=== PATIENT | male | born 1970 | race American Indian/Alaskan Native ===

== ENCOUNTER 2020-04-16 03:00 | Observation (INO) | payer OTHER ==
[~2020-04-16 03:00] MED LIST: levoFLOXacin 750 MG TAB PO SCH
[2020-04-16] MEDS ORDERED: NALOXONE 0.4 MG/1 ML INJ IV ONE (03:10)
[2020-04-16] MEDS ORDERED: NALOXONE 2 MG/2 ML INJ ONE (03:10)
[2020-04-16] MEDS ORDERED: SODIUM CHLORIDE 0.9% 1000 ML 1,000 ML IV ONE (03:10)
--- NOTE | 2020-04-16 03:17 | Emergency Department Report ---
History of Present Illness - General Chief Complaint: Dyspnea/Respdistress Stated Complaint: POSS OD/ANJUM Time Seen by Provider: 04/16/20 03:10 Source: patient, EMS Mode of arrival: Stretcher Limitations: No Limitations - History of Present Illness Initial Comments: Chief complaint: Stomach pain chest pain shortness of breath HPI: This is a 50-year-old male with history of polysubstance abuse who presents with abdominal pain chest pain shortness of breath after using recreational drugs. Today just prior to EMS arrival he smoked marijuana and snorted unknown substance from a friend. He assumed that the substance was cocaine. EMS discovered severe hypoxia 77% on room air and decreased respiratory effort. Pinpoint pupils and drowsiness also detected by metal ceiling hanger. Patient has nonspecific abdominal pain. Without oxygen supplementation, current room air oxygenation 67% which is severely hypoxic. Patient able to give history although still drowsy. MD Complaint: accidental overdose -: Sudden, This morning Context: Accidental Overdose: wanted to get high Associated Symptoms: shortness of breath, abdominal pain Treatments Prior to Arrival: oxygen - Related Data Allergies Allergy/AdvReac Type Severity Reaction Status Date / Time No Known Allergies Allergy Verified 04/16/20 03:09 ED Review of Systems ROS: Stated complaint: POSS OD/ANJUM Other details as noted in HPI Comment: All other systems reviewed and negative Constitutional: denies: fever, malaise Respiratory: shortness of breath. denies: cough Cardiovascular: chest pain Gastrointestinal: abdominal pain Psychiatric: denies: anxiety, depression, auditory hallucinations, visual hallucinations, homicidal thoughts, suicidal thoughts ED Past Medical Hx - Past Medical History Previous Medical History?: No - Surgical History Past Surgical History?: No - Social History Smoking Status: Current Every Day Smoker Substance Use Type: Alcohol, Cocaine, Marijuana ED Physical Exam - General Limitations: No Limitations General appearance: alert, in no apparent distress - Head Head exam: Present: atraumatic, normocephalic - Eye Eye exam: Present: normal appearance - ENT ENT exam: Present: mucous membranes moist - Neck Neck exam: Present: normal inspection, full ROM - Respiratory Respiratory exam: Present: normal lung sounds bilaterally. Absent: respiratory distress, wheezes, rales, rhonchi - Cardiovascular Cardiovascular Exam: Present: normal rhythm, tachycardia, normal heart sounds. Absent: systolic murmur, diastolic murmur, rubs, gallop - GI/Abdominal GI/Abdominal exam: Present: soft, normal bowel sounds. Absent: distended, tenderness, guarding, rebound - Rectal Rectal exam: Present: deferred - Extremities Exam Extremities exam: Present: normal inspection - Neurological Exam Neurological exam: Present: alert, oriented X3 - Psychiatric Psychiatric exam: Present: normal affect, normal mood - Skin Skin exam: Present: warm, dry, intact, normal color. Absent: rash ED Course Vital Signs 04/16/20 03:31 Pulse Rate 137 H Respiratory 22 Rate Blood Pressure 132/95 [Left] O2 Sat by Pulse 92 Oximetry ED Medical Decision Making - Lab Data Result diagrams: 04/16/20 03:16 04/16/20 03:16 - EKG Data EKG shows normal: sinus rhythm, intervals, QRS complexes, ST-T waves Rate: tachycardia - EKG Data 04/16/20 04:15 EKG obtained 0406 EKG interpreted by md Sinus tachycardia rate 120 bpm left axis deviation prolonged QTC no ST elevation normal nonischemic T wave pattern - Radiology Data Radiology results: report reviewed CHEST 1 VIEW 04/16/2020 2:37 AM INDICATION / CLINICAL INFORMATION: Hypoxia. COMPARISON: None available. FINDINGS: SUPPORT DEVICES: None. HEART / MEDIASTINUM: No significant abnormality. LUNGS / PLEURA: There are patchy bilateral pulmonary opacities. No pneumothorax. ADDITIONAL FINDINGS: No significant additional findings. IMPRESSION: 1. Patchy bilateral pulmonary opacities which may reflect developing infectious process. - Medical Decision Making Upon arrival patient was drowsy with severe hypoxia. I asked nursing staff member to administer 2 mg of Narcan. Shortly after receiving naloxone, patient was alert agitated screaming for water. He then admitted he suspected heroin was mixed then with the powder that he snorted. He tolerated water intake. Once patient became more more alert, he explained that he took pills and snorted lines from unknown person. He suspects that ingested ecstasy, cocaine and heroin. Prior to using drugs, he was in his normal state of health. He denied fever cough shortness of breath. He currently does not have any chest or abdominal pain. He does have some shortness of breath. After ingesting the drugs, he awakened suddenly. He felt as though something was not right. He had passed out. He is currently staying at a hotel. He asked dental front office assistant to call 911. Upon lab review troponin equivocal 0.05, EKG does not reveal any acute ischemic changes. I do not suspect acute occlusive myocardial infarction. Patient did have severe tachycardia upon arrival. I suspect troponin leak. Creatinine 1.7. No leukocytosis normal WBC. Patient is admitted to the hospital service for aspiration pneumonitis, acute respiratory failure hypoxia, polysubstance abuse and unintentional overdose. Critical Care Time: Yes Critical care time in (mins) excluding proc time.: 40 Critical care attestation.: If time is entered above; I have spent that time in minutes in the direct care of this critically ill patient, excluding procedure time. 40 minutes of critical care time excluding procedures were used in the care of the patient. I came immediately to the bedside upon patient's arrival. I obtained history from EMS at the bedside. I discussed treatment plan with the nursing team members. I reviewed electronic record. Patient required multiple interventions and reassessments. I was concerned for imminent airway/respi ratory compromise. Patient had severe hypoxia 67% on room air upon arrival. I was also concerned for aspiration pneumonitis as well as pneumothorax. ED Disposition Clinical Impression: Acute respiratory failure, Polysubstance abuse, Drug overdose, Aspiration pneumonitis Disposition: OP ADMIT IP TO THIS HOSP Is pt being admited?: Yes Does the pt Need Aspirin: No Condition: Stable
[2020-04-16 03:34] LABS: Mean Corpuscular HGB Conc 31 % (32-34); Mean Corpuscular Volume 80 fl (84-94); Platelet Count 234 K/mm3 (140-440); Red Blood Count 6.37 M/mm3 (3.65-5.03); Red Cell Distribution Width 14.4 % (13.2-15.2)
--- NOTE | 2020-04-16 03:45 | XRay Report ---
CHEST 1 VIEW 04/16/2020 2:37 AM INDICATION / CLINICAL INFORMATION: Hypoxia. COMPARISON: None available. FINDINGS: SUPPORT DEVICES: None. HEART / MEDIASTINUM: No significant abnormality. LUNGS / PLEURA: There are patchy bilateral pulmonary opacities. No pneumothorax. ADDITIONAL FINDINGS: No significant additional findings. IMPRESSION: 1. Patchy bilateral pulmonary opacities which may reflect developing infectious process. Signer Name: Austyn Stroud MD Signed: 04/16/2020 3:40 AM Workstation Name: [email or web address]
[2020-04-16 03:50] LABS: Hematocrit 50.8 % (35.5-45.6); Hemoglobin 15.7 gm/dl (11.8-15.2)
[2020-04-16 03:51] LABS: Albumin 4.5 g/dL (3.9-5); Calcium 9.2 mg/dL (8.4-10.2)
[2020-04-16] MEDS ORDERED: PIPERACIL/TAZOBACTA 4.5/NS 100 4.5 GM/100 ML VIAL IV ONE ×2 (04:10→15:15)
[2020-04-16] MEDS ORDERED: MAGNESIUM HYDROXIDE (MOM) ORAL LIQD UDC PO PRN (04:41)
[2020-04-16] MEDS ORDERED: ACETAMINOPHEN 325 MG TAB PO PRN ×2 (04:41→17:21)
[2020-04-16] MEDS ORDERED: SODIUM CHLORIDE 0.9% 1000 ML 1,000 ML IV SCH ×2 (04:45)
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
[2020-04-16 06:03] LABS: Chol/HDL Ratio 2.03 %
[2020-04-16 06:20] LABS: Eosinophils % (Manual) 0 % (0.0-4.3); Total Cells Counted 100
[2020-04-16 06:21] LABS: Anisocytosis Few; Hypochromasia 1+; Platelet Estimate Consistent w Auto; Target Cells Rare
[2020-04-16 08:54] LABS: Benzodiazepines Screen,Urine Negative; Methadone Screen,Urine Negative; Opiate Screen,Urine Negative
[2020-04-16 10:42] LABS: Amphetamine Screen,Urine PRESUMPTIVE POSITIVE
[2020-04-16 10:43] LABS: Cannabinoid Screen,Urine PRESUMPTIVE POSITIVE; Cocaine Screen,Urine PRESUMPTIVE POSITIVE
[2020-04-16] MEDS ORDERED: SODIUM CHLORIDE 0.9% 1000 ML 1,000 ML ONE (12:12)
[2020-04-16] MEDS: PIPERACIL/TAZOBACTA 4.5/NS 100 4.5 GM/100 ML VIAL IV SCH ×2 (15:16→22:30)
--- NOTE | 2020-04-16 17:20 | Event Note ---
Date: 04/16/20 patient evaluated and labs reviewed Crack cocaine overdose accidentally along with alcohol with 24ounce beer x3 bottles Creatinine of 1.7 Diagnoses STAN Crack cocaine accidental overdose Patient is not homicidal or suicidal Dehydration Patient counseled about crack cocaine dependency and patient states that he will never do it
[2020-04-16] MEDS ORDERED: ONDANSETRON 4 MG/2 ML INJ IV PRN (17:21)
[2020-04-16] MEDS ORDERED: LORazepam 2 MG/ML VIAL ONE ×2 (17:46→20:17)
[2020-04-16] MEDS: LORazepam 2 MG/ML VIAL IV PRN ×3 (17:55→22:42)
[2020-04-16] MEDS ORDERED: D5W/0.9% NACL 1,000 ML IV SCH (18:00)
[2020-04-16] MEDS ORDERED: ENOXAPARIN 40 MG/0.4 ML INJ SUB-Q SCH (22:00)
[2020-04-16] MEDS: FAMOTIDINE 20 MG/2 ML INJ IV SCH (22:29)
[2020-04-16] MEDS: HEPARIN 5,000 UNIT/1 ML VIAL SUB-Q SCH (22:30)
[2020-04-17] MEDS: PIPERACIL/TAZOBACTA 4.5/NS 100 4.5 GM/100 ML VIAL IV SCH (05:58)
[2020-04-17 06:01] LABS: Basophils % (Auto) 0.3 % (0.0-1.8); Eosinophils % (Auto) 0.1 % (0.0-4.3); Hematocrit 40.6 % (35.5-45.6); Hemoglobin 12.7 gm/dl (11.8-15.2); Lymphocytes # (Auto) 0.7 K/mm3 (1.2-5.4); Lymphocytes % (Auto) 6.2 % (13.4-35.0); Mean Corpuscular HGB Conc 31 % (32-34); Mean Corpuscular Volume 78 fl (84-94); Monocytes # (Auto) 0.9 K/mm3 (0.0-0.8); Monocytes % (Auto) 7.6 % (0.0-7.3); Platelet Count 161 K/mm3 (140-440); Red Blood Count 5.17 M/mm3 (3.65-5.03); Red Cell Distribution Width 13.5 % (13.2-15.2)
[2020-04-17 06:05] LABS: INR 1.22 (0.87-1.13)
[2020-04-17 06:08] LABS: BUN/Creatinine Ratio 11; Blood Urea Nitrogen 12 mg/dL (9-20); Calcium 8.4 mg/dL (8.4-10.2); Hemolysis Index 3
--- NOTE | 2020-04-17 08:53 | Discharge Summary ---
Providers - Providers Date of Admission: 04/16/20 04:17 Date of discharge: 04/17/20 Attending physician: ANCELMO NEGRON 04/16/20 17:23 Consult to Mental Health [CONS] Routine Reason For Exam: Crack cocaine abuse Primary care physician: MANUFACTURING BUSINESS ANALYST Hospitalization Condition: Stable Hospital course: 50-year-old -[place] male with known history of polysubstance abuse brought into the emergency room today by EMS with shortness of breath after using some recreational drugs. Patient admits that he snorted some unknown substance from a friend earlier today prior to arrival of EMS. He was found to be severely hypoxic with oxygen saturation of 77% on room air and decreased respiratory efforts. He was found to be drowsy and had pinpoint pupils. He had some Narcan with significant improvement. Upon arrival in the emergency room he was placed on BiPAP. Work-up in the emergency room today reveals - Patchy bilateral pulmonary opacities which may reflect developing infectious process. He has been placed on empiric IV antibiotics. Patient was seen yesterday afternoon and none of this morning. Patient is alert oriented. Patient attributes his unresponsiveness to excessive amount. Crack cocaine combined with excessive pills combined with alcohol and small dose of heroin. Patient says artery disease stability and at home he wants to stop with further. No suicidal or homicidal ideation. (1) Acute respiratory failure Status: Acute Plan to address problem: Improved O2 sats are normal on room air (2) Aspiration pneumonitis Status: Acute Plan to address problem: No aspiration pneumonia We will discharge on oral Levaquin (3) Drug overdose Status: Acute Plan to address problem: Patient counseled on quitting illicit drug abuse. Recovered completely from the drug overdose and is alert and oriented. Able to talk appropriately and intelligently. Patient counseled again about stopping crack cocaine and ecstasy and alcohol. Patient states that he will go for outpatient rehab. Patient will be discharged on Ativan 0.5 twice daily as needed for any withdrawal symptoms. Disposition: DC-01 TO HOME OR SELFCARE - Discharge Diagnoses (1) Respiratory failure with hypoxia Status: Acute (2) Drug overdose Status: Acute Qualifiers: Encounter type: subsequent encounter Injury intent: accidental or unintentional Qualified Code(s): T50.901D - Poisoning by unspecified drugs, medicaments and biological substances, accidental (unintentional), subsequent encounter Comment: Patient is stable and alert and oriented (3) Pneumonia Status: Acute Comment: No aspiration Pneumonia is doubtful Empiric antibiotics (4) Alcoholic ketoacidosis Status: Acute Comment: Improved with IV fluids and CIWA protocol (5) Discharge planning issues Status: Acute Comment: No suicidal or homicidal ideation Patient is labs reviewed come down to normal creatinine is 1.0 (6) STAN (acute kidney injury) Status: Acute Comment: Resolved Core Measure Documentation - Palliative Care Palliative Care/ Comfort Measures: Not Applicable - Core Measures Any of the following diagnoses?: none Exam - Constitutional Vitals: Temp Pulse Resp BP Pulse Ox 100.8 F H 111 H 24 104/64 91 04/17/20 04:56 04/17/20 04:56 04/17/20 04:56 04/17/20 04:56 04/17/20 04:56 General appearance: Present: no acute distress, well-nourished - EENT Eyes: Present: PERRL ENT: hearing intact, clear oral mucosa - Neck Neck: Present: supple, normal ROM - Respiratory Respiratory effort: normal Respiratory: bilateral: CTA - Cardiovascular Heart rate: 78 Rhythm: regular Heart Sounds: Present: S1 & S2. Absent: rub, click - Extremities Extremities: no ischemia, pulses intact, pulses symmetrical, No edema Peripheral Pulses: within normal limits - Abdominal General gastrointestinal: Present: soft, non-tender, non-distended, normal bowel sounds Male genitourinary: Present: normal - Integumentary Integumentary: Present: clear, warm, dry - Musculoskeletal Musculoskeletal: gait normal, strength equal bilaterally - Psychiatric Psychiatric: appropriate mood/affect, intact judgment & insight - Neurologic Neurologic: CNII-XII intact, moves all extremities Plan Activity: no restrictions Diet: regular Follow up with: PRIMARY CARE, [Primary Care Provider] - 7 Days
[2020-04-17] MEDS: LORazepam 2 MG/ML VIAL IV PRN (10:00)
[2020-04-17] MEDS: FAMOTIDINE 20 MG/2 ML INJ IV SCH (10:54)
[2020-04-17] MEDS: HEPARIN 5,000 UNIT/1 ML VIAL SUB-Q SCH (10:58)
--- NOTE | 2020-04-17 11:59 | Consultation ---
History of Present Illness - Reason for Consult Consult date: 04/17/20 Reason for consult: accidental overdose, drug use - History of Present Psychiatric Illness The patient's medical record was reviewed and the patient's progress was discussed with the nursing staff. During my interview with the patient today, he is lying in bed asleep. He easily arouses but drifts back to sleep. The patient is oriented x 3. He says he was brought to the ER for "too much drugs." The patient says he was doing "alcohol, marijuana and cocaine." He says "the lady at the hotel front desk agent at the hotel called 911." He says "I guess I passed out." The patient denies thoughts of self harm o r homicidal thoughts. He also denies any thoughts of or dying. The patient states, "I wasn't trying to kill myself." He then says, "not at all." He says he went to rehab "once before." When counseling the patient about his drug use, he states "I told God after I came in here almost . I don't want to see another beer, cigarette or drug in my life." He denies any withdrawal symptoms at pre sent. The patient denies any past suicide attempts or seeing a psychiatrist. He also denies being on any psych medications. He denies hallucinations of any kind, stating, "no, I don't have hallucinations." The patient describes his mood as "okay, but tired." He says, "but I gotta go to work when I leave here." He then says, "tomorrow anyway." PAST PSYCHIATRIC HISTORY: Diagnoses: Denies Suicide attempts or Self-harm behavior: Denies Prior psychiatric hospitalizations: Denies Substance Abuse history: Alcohol, marijuana, cocaine. UDS + for meth as well Previous psychiatric medications tried: Denies Outpatient treatment: Denies PAST MEDICAL HISTORY: None reported Family Psychiatric History: None reported or documented SOCIAL HISTORY Marital Status: Single Living Arrangements: in hotel room Employment Status: Employed Access to guns/weapons: Denies Education: high school grad History of Abuse: none reported Legal History: Denies REVIEW OF SYSTEMS Constitutional: Negative for weight loss ENT: Negative for stridor Respiratory: Negative for cough or hemoptysis All other systems reviewed and are negative MENTAL STATUS EXAMINATION General Appearance: Dressed appropriately. Sleeping Behavior: Calm and cooperative, drowsy Mood: "okay, but tired" Affect and affective range: Congruent with stated mood Thought Process: goal directed Speech: Normal tone and pace Suicidal Ideation: Denies Homicidal Ideation: Denies Hallucinations: Denies Delusions: None elicited Insight and Judgment: Limited Memory/Cognition: Limited Orientation: Alert, oriented x 3 Assessment Substance Use Disorder PLAN No meds prescribed at this time. Sitter: Defer to primary Medical: Per primary Disposition: Do not recommend acute inpatient psychiatric treatment. The patient may discharge once medically clear. He understands that if thoughts of self harm or fear of endangerment arise he is to seek immediate assistance including but not limited to the crisis hotline, 911/ER. The liquid waste treatment plant operator to give the patient referrals for outpatient psychiatry, cognitive behavioral therapy and drug and alcohol rehab. The patient is to abstain from all illicit drug use and alcohol. He is to follow up with outpatient psych and primary in 7 to 14 days upon discharge Will Continue to follow. Thank you for this consult Medications and Allergies Allergies Allergy/AdvReac Type Severity Reaction Status Date / Time No Known Allergies Allergy Verified 04/16/20 03:09 Home Medications Medication Instructions Recorded Confirmed Last Taken Type LORazepam [Ativan] 0.5 mg PO Q6H PRN #16 tablet 04/17/20 Unknown Rx Active Meds: Active Medications Acetaminophen (Tylenol) 650 mg PO Q4H PRN PRN Reason: Pain MILD(1-3)/Fever >100.5/ACEVEDO Last Admin: 04/17/20 06:11 Dose: 650 mg Documented by: Enoxaparin Sodium (Enoxaparin) 40 mg SUB-Q QDAY@2200 RUBÉN; Protocol Last Admin: 04/16/20 22:29 Dose: 40 mg Documented by: Famotidine (Pepcid) 20 mg IV BID [facility] Stop: 04/17/20 14:00 Last Admin: 04/17/20 10:54 Dose: 20 mg Documented by: Famotidine (Pepcid) 20 mg PO BID [facility] Heparin Sodium (Porcine) (Heparin) 5,000 unit SUB-Q Q12HR [facility] Last Admin: 04/17/20 10:58 Dose: 5,000 unit Documented by: Piperacillin Sod/Tazobactam Sod (Zosyn/Ns 4.5gm/100ml) 4.5 gm in 100 mls @ 200 mls/hr IV Q8HR [facility]; Protocol Stop: 04/20/20 23:59 Last Infusion: 04/17/20 08:23 Dose: Infused Documented by: Dextrose/Sodium Chloride (D5ns) 1,000 mls @ 100 mls/hr IV DIRECT RUBÉN Levofloxacin (Levaquin) 750 mg PO DAILY [facility] Stop: 04/22/20 10:59 Lorazepam (Ativan) 2 mg IV Q1H PRN PRN Reason: CIWA-Ar 8-15 Last Admin: 04/17/20 10:00 Dose: 2 mg Documented by: Magnesium Hydroxide (Milk Of Magnesia) 30 ml PO Q4H PRN PRN Reason: Constipation Ondansetron HCl (Zofran) 4 mg IV Q8H PRN PRN Reason: Nausea And Vomiting Sodium Chloride (Sodium Chloride Flush Syringe 10 Ml) 10 ml IV BID [facility] Last Admin: 04/17/20 10:56 Dose: 10 ml Documented by: Sodium Chloride (Sodium Chloride Flush Syringe 10 Ml) 10 ml IV PRN PRN PRN Reason: LINE FLUSH Sodium Chloride (Sodium Chloride Flush Syringe 10 Ml) 10 ml IV BID [facility] Last Admin: 04/17/20 10:58 Dose: 10 ml Documented by: Mental Status Exam - Vital signs Last Vital Signs Temp 100.8 F H 04/17/20 04:56 Pulse 111 H 04/17/20 04:56 Resp 24 04/17/20 04:56 BP 104/64 04/17/20 04:56 Pulse Ox 91 04/17/20 04:56 Results Result Diagrams: 04/17/20 05:06 04/17/20 05:06 Abnormal lab results 04/17/20 04/17/20 Range/Units 05:06 05:06 WBC 11.7 H (4.5-11.0) K/mm3 RBC 5.17 H (3.65-5.03) M/mm3 MCV 78 L (84-94) fl MCH 25 L (28-32) pg MCHC 31 L (32-34) % Lymph % (Auto) 6.2 L (13.4-35.0) % [place] % (Auto) 7.6 H (0.0-7.3) % Lymph # (Auto) 0.7 L (1.2-5.4) K/mm3 [place] # (Auto) 0.9 H (0.0-0.8) K/mm3 Seg Neutrophils % 85.8 H (40.0-70.0) % Seg Neutrophils # 10.0 H (1.8-7.7) K/mm3 PT 15.6 H (12.2-14.9) Sec. INR 1.22 H (0.87-1.13) All other labs normal.
[2020-04-17 18:27] VITALS: BP 122/72
[2020-04-17] MEDS ORDERED: FAMOTIDINE 20 MG TAB PO SCH (22:00)
[2020-04-18] MEDS ORDERED: levoFLOXacin 750 MG TAB PO SCH (10:00)
== END 2020-04-17 20:00 | disposition home or self-care (01) ==
LOC: ED 03:00 → IMCU 04:17 → 3A 17:37
PROVIDERS: ADMIT Internal Medicine Geriatric Medicine; ATTEND Internal Medicine
DX: J96.00 Acute respiratory failure, unspecified whether with hypoxia or hypercapnia (principal); J69.0 Pneumonitis due to inhalation of food and vomit; T50.901D Poisoning by unspecified drugs, medicaments and biological substances, accidental (unintentional), subsequent encounter; E87.2 Acidosis; N17.9 Acute kidney failure, unspecified; F17.200 Nicotine dependence, unspecified, uncomplicated; F12.10 Cannabis abuse, uncomplicated; F14.10 Cocaine abuse, uncomplicated; X58.XXXD Exposure to other specified factors, subsequent encounter; Y93.89 Activity, other specified; Y92.89 Other specified places as the place of occurrence of the external cause
CPT/HCPCS: 36415; 71045; 80048; 80053; 80061; 80307; 83690; 84484; 85025; 85610; 87040; 93005; 96361; 96365; 96366; 96367; 96372; 96375; 96376; 99291; G0378; J1644; J1650; J1956; J2060; J2310; J2543; J7030; 80320; 85007; G0480

== ENCOUNTER 2020-04-19 06:54 | Inpatient (IN) | payer OTHER ==
--- NOTE | 2020-04-19 07:26 | Emergency Department Report ---
ED General Adult HPI - General Chief complaint: Chest Pain Stated complaint: CHEST PAIN PUI?: Yes Time Seen by Provider: 04/19/20 07:23 Source: patient, EMS ( EMS documentation not available at time of chart dictation ), RN notes reviewed Mode of arrival: Stretcher Limitations: Physical Limitation - History of Present Illness Initial comments: The patient was evaluated in the emergency department for symptoms described in the history of present illness. He/she was evaluated in the context of the global COVID-19 pandemic, which necessitated consideration that the patient might be at risk for infection with the virus that causes COVID-19. Institutional protocols and algorithms that pertain to the evaluation of patient s at risk for COVID-19 are in a state of rapid change based on information released by regulatory bodies including the CDC and federal and state organizations. These policies and algorithms were followed during the patient's care in the emergency department. Please note that these policies, procedures and recommendations changed on a rapid basis. During the entire history and physical examination, I had on complete personal protective equipment The patient is a 50-year-old gentleman, with a history of polysubstance abuse recreational drug use, recently admitted to this hospital for acute respiratory failure, hypoxia, and presumed aspiration pneumonitis. He was discharged with antibiotics. He is not taking his antibiotics. He presents to the ER today with continued complaints of cough, chest wall pain, shortness of breath, chills, malaise and fatigue. He states his symptoms have been going on for a few days. He contacted emergency medical services, and was reportedly found to be hypoxic, saturating in the low 80s. No complaint of headache, abdominal pain, vomiting. Question diaphoresis. -: Gradual, days(s) Location: chest Consistency: constant Improves with: rest Worsens with: movement - Related Data Previous Rx's Medication Instructions Recorded Last Taken Type LORazepam [Ativan] 0.5 mg PO Q6H PRN #16 tablet 04/17/20 Unknown Rx Allergies Allergy/AdvReac Type Severity Reaction Status Date / Time No Known Allergies Allergy Verified 04/16/20 03:09 ED Review of Systems ROS: Stated complaint: CHEST PAIN Other details as noted in HPI Constitutional: diaphoresis, malaise Eyes: denies: eye discharge ENT: congestion Respiratory: cough, shortness of breath, wheezing Cardiovascular: chest pain Gastrointestinal: denies: vomiting Genitourinary: as per HPI Musculoskeletal: myalgia Skin: denies: lesions Neurological: weakness ED Past Medical Hx - Past Medical History Hx Congestive Heart Failure: No Hx Diabetes: No Hx Asthma: No Hx COPD: No Hx HIV: No - Social History Smoking Status: Current Every Day Smoker - Medications Home Medications: Home Medications Medication Instructions Recorded Confirmed Last Taken Type LORazepam [Ativan] 0.5 mg PO Q6H PRN #16 tablet 04/17/20 Unknown Rx ED Physical Exam - General Limitations: Physical Limitation General appearance: alert, anxious, in distress - Head Head exam: Present: atraumatic, normocephalic - Eye Eye exam: Present: normal appearance, EOMI. Absent: nystagmus - ENT ENT exam: Present: normal exam, normal orophraynx, mucous membranes moist, normal external ear exam - Neck Neck exam: Present: normal inspection, full ROM. Absent: tenderness, meningismus - Respiratory Respiratory exam: Present: respiratory distress, chest wall tenderness, accessory muscle use, decreased breath sounds. Absent: stridor - Cardiovascular Cardiovascular Exam: Present: regular rate, normal rhythm, normal heart sounds. Absent: bradycardia, tachycardia, irregular rhythm, systolic murmur, diastolic murmur, rubs, gallop - GI/Abdominal GI/Abdominal exam: Present: soft. Absent: distended, tenderness, guarding, rebound, rigid, pulsatile mass - Rectal Rectal exam: Present: deferred - Extremities Exam Extremities exam: Present: normal inspection, full ROM, other (2+ pulses noted in the bilateral upper and lower extremities. There is no palpable cord. negative Homans sign. Muscular compartments are soft. The pelvis is stable.). Absent: pedal edema, calf tenderness - Back Exam Back exam: Present: normal inspection, full ROM. Absent: tenderness, CVA tenderness (R), CVA tenderness (L), paraspinal tenderness, vertebral tenderness - Neurological Exam Neurological exam: Present: alert, other (No facial droop. Tongue midline. Extraocular movements intact bilaterally. Facial sensation intact to light touch in V1, V2, V3 distribution bilaterally. 5 and a 5 strength in 4 extremities. Sensation intact to light touch in 4 extremities.). Absent: motor sensory deficit - Psychiatric Psychiatric exam: Present: anxious - Skin Skin exam: Present: warm, dry, intact, normal color. Absent: rash ED Course Vital Signs 04/19/20 08:56 Pulse Rate 90 Respiratory 16 Rate Blood Pressure 97/56 [Left] O2 Sat by Pulse 100 Oximetry ED Medical Decision Making - Lab Data Result diagrams: 04/19/20 07:35 04/19/20 07:35 Vital Signs 04/19/20 08:56 Pulse Rate 90 Respiratory 16 Rate Blood Pressure 97/56 [Left] O2 Sat by Pulse 100 Oximetry Lab Results 04/19/20 04/19/20 04/19/20 Range/Units 07:35 07:35 07:35 WBC 12.1 H (4.5-11.0) K/mm3 RBC 5.05 H (3.65-5.03) M/mm3 Hgb 12.4 (11.8-15.2) gm/dl Hct 38.5 (35.5-45.6) % MCV 76 L (84-94) fl MCH 25 L (28-32) pg MCHC 32 (32-34) % RDW 13.7 (13.2-15.2) % Plt Count 186 (140-440) K/mm3 Lymph % (Auto) 7.7 L (13.4-35.0) % [place] % (Auto) 11.9 H (0.0-7.3) % Eos % (Auto) 0.1 (0.0-4.3) % Baso % (Auto) 0.4 (0.0-1.8) % Lymph # (Auto) 0.9 L (1.2-5.4) K/mm3 [place] # (Auto) 1.4 H (0.0-0.8) K/mm3 Eos # (Auto) 0.0 (0.0-0.4) K/mm3 Baso # (Auto) 0.1 (0.0-0.1) K/mm3 Seg Neutrophils % 79.9 H (40.0-70.0) % Seg Neutrophils # 9.7 H (1.8-7.7) K/mm3 PT 12.6 (12.2-14.9) Sec. INR 0.93 (0.87-1.13) Sodium 136 L (137-145) mmol/L Potassium 3.4 L (3.6-5.0) mmol/L Chloride 99.0 (98-107) mmol/L Carbon Dioxide 27 (22-30) mmol/L Anion Gap 13 mmol/L BUN 6 L (9-20) mg/dL Creatinine 0.9 (0.8-1.3) mg/dL Estimated GFR > 60 ml/min BUN/Creatinine Ratio 7 % Glucose 105 H (75-100) mg/dL Lactic Acid (0.7-2.0) mmol/L Calcium 8.6 (8.4-10.2) mg/dL Magnesium (1.7-2.3) mg/dL Ferritin (30.0-300.0) ng/mL Total Bilirubin 0.80 (0.1-1.2) mg/dL AST 15 (5-40) units/L ALT 15 (7-56) units/L Alkaline Phosphatase 47 (35-129) units/L Lactate Dehydrogenase (91-180) units/L Total Creatine Kinase (55-170) units/L Troponin T < 0.010 (0.00-0.029) ng/mL C-Reactive Protein (0.00-1.30) mg/dL Total Protein 6.1 L (6.3-8.2) g/dL Albumin 2.7 L (3.9-5) g/dL Albumin/Globulin Ratio 0.8 % Salicylates (2.8-20.0) mg/dL Acetaminophen (10.0-30.0) ug/mL Plasma/Serum Alcohol (0-0.07) % 04/19/20 04/19/20 04/19/20 Range/Units 07:35 07:35 07:35 WBC (4.5-11.0) K/mm3 RBC (3.65-5.03) M/mm3 Hgb (11.8-15.2) gm/dl Hct (35.5-45.6) % MCV (84-94) fl MCH (28-32) pg MCHC (32-34) % RDW (13.2-15.2) % Plt Count (140-440) K/mm3 Lymph % (Auto) (13.4-35.0) % [place] % (Auto) (0.0-7.3) % Eos % (Auto) (0.0-4.3) % Baso % (Auto) (0.0-1.8) % Lymph # (Auto) (1.2-5.4) K/mm3 [place] # (Auto) (0.0-0.8) K/mm3 Eos # (Auto) (0.0-0.4) K/mm3 Baso # (Auto) (0.0-0.1) K/mm3 Seg Neutrophils % (40.0-70.0) % Seg Neutrophils # (1.8-7.7) K/mm3 PT (12.2-14.9) Sec. INR (0.87-1.13) Sodium (137-145) mmol/L Potassium (3.6-5.0) mmol/L Chloride (98-107) mmol/L Carbon Dioxide (22-30) mmol/L Anion Gap mmol/L BUN (9-20) mg/dL Creatinine (0.8-1.3) mg/dL Estimated GFR ml/min BUN/Creatinine Ratio % Glucose (75-100) mg/dL Lactic Acid 0.90 (0.7-2.0) mmol/L Calcium (8.4-10.2) mg/dL Magnesium 2.10 (1.7-2.3) mg/dL Ferritin (30.0-300.0) ng/mL Total Bilirubin (0.1-1.2) mg/dL AST (5-40) units/L ALT (7-56) units/L Alkaline Phosphatase (35-129) units/L Lactate Dehydrogenase 237 H (91-180) units/L Total Creatine Kinase 69 (55-170) units/L Troponin T (0.00-0.029) ng/mL C-Reactive Protein 13.40 H (0.00-1.30) mg/dL Total Protein (6.3-8.2) g/dL Albumin (3.9-5) g/dL Albumin/Globulin Ratio % Salicylates 1.0 L (2.8-20.0) mg/dL Acetaminophen (10.0-30.0) ug/mL Plasma/Serum Alcohol (0-0.07) % 04/19/20 04/19/20 04/19/20 Range/Units 07:35 07:35 07:51 WBC (4.5-11.0) K/mm3 RBC (3.65-5.03) M/mm3 Hgb (11.8-15.2) gm/dl Hct (35.5-45.6) % MCV (84-94) fl MCH (28-32) pg MCHC (32-34) % RDW (13.2-15.2) % Plt Count (140-440) K/mm3 Lymph % (Auto) (13.4-35.0) % [place] % (Auto) (0.0-7.3) % Eos % (Auto) (0.0-4.3) % Baso % (Auto) (0.0-1.8) % Lymph # (Auto) (1.2-5.4) K/mm3 [place] # (Auto) (0.0-0.8) K/mm3 Eos # (Auto) (0.0-0.4) K/mm3 Baso # (Auto) (0.0-0.1) K/mm3 Seg Neutrophils % (40.0-70.0) % Seg Neutrophils # (1.8-7.7) K/mm3 PT (12.2-14.9) Sec. INR (0.87-1.13) Sodium (137-145) mmol/L Potassium (3.6-5.0) mmol/L Chloride (98-107) mmol/L Carbon Dioxide (22-30) mmol/L Anion Gap mmol/L BUN (9-20) mg/dL Creatinine (0.8-1.3) mg/dL Estimated GFR ml/min BUN/Creatinine Ratio % Glucose (75-100) mg/dL Lactic Acid (0.7-2.0) mmol/L Calcium (8.4-10.2) mg/dL Magnesium (1.7-2.3) mg/dL Ferritin 342.7 H (30.0-300.0) ng/mL Total Bilirubin (0.1-1.2) mg/dL AST (5-40) units/L ALT (7-56) units/L Alkaline Phosphatase (35-129) units/L Lactate Dehydrogenase (91-180) units/L Total Creatine Kinase (55-170) units/L Troponin T (0.00-0.029) ng/mL C-Reactive Protein (0.00-1.30) mg/dL Total Protein (6.3-8.2) g/dL Albumin (3.9-5) g/dL Albumin/Globulin Ratio % Salicylates (2.8-20.0) mg/dL Acetaminophen 5.0 L (10.0-30.0) ug/mL Plasma/Serum Alcohol < 0.01 (0-0.07) % - EKG Data -: EKG Interpreted by Pa EKG shows normal: sinus rhythm Rate: normal - EKG Data 04/19/20 09:03 Sinus rhythm, 90 bpm, left axis deviation, left anterior fascicular block, high left ventricular voltage, poor R wave progression, the EKG is abnormal, the EKG is not a STEMI, it appears to be unchanged from prior EKG - Radiology Data Radiology results: report reviewed, image reviewed Print Report Referring Physician: JOHN BOLDEN Patient Name: ROHIT GRIMES Date of : 1970 Sex: Male Report Date: 2020-04-16 Report Status: Finalized Findings [facility] [address] [place] [address] XRay Report Signed Patient: ROHIT GRIMES MR#: [id number] 8 : 1970 Acct:[id number] Age/Sex: 50 / M ADM Date: 04/16/20 Loc: ED Attending Dr: Ordering Physician: John Bustillos MD Date of Service: 04/16/20 Procedure(s): XR chest 1V ap Accession Number(s): [id number] cc: John Bustillos MD Fluoro Time In Minutes: CHEST 1 VIEW 04/16/2020 2:37 AM INDICATION / CLINICAL INFORMATION: Hypoxia. COMPARISON: None available. FINDINGS: SUPPORT DEVICES: None. HEART / MEDIASTINUM: No significant abnormality. LUNGS / PLEURA: There are patchy bilateral pulmonary opacities. No pneumothorax. ADDITIONAL FINDINGS: No significant additional findings. IMPRESSION: 1. Patchy bilateral pulmonary opacities which may reflect developing infectious process. Signer Name: Austyn Stroud MD Signed: 04/16/2020 3:40 AM Workstation Name: [id number] Transcribed By: JOSE Dictated By: Austyn Stroud MD Electronically Authenticated By: Austyn Stroud MD Signed Date/Time: 04/16/20339 DD/ 9 TD/TT: - Medical Decision Making Differential diagnosis, including but not limited to: Costochondritis, pneumonia, bacterial versus viral versus COVID Assessment and plan: 50-year-old gentleman with recently diagnosed pneumonia, hypoxic, with reproducible chest wall pain, meets criteria for hospitalization secondary to hypoxia. Laboratory studies reviewed and appreciated, give ceftriaxone, azithromycin, fluids, provide supplemental oxygen, and empiric steroids. COVID testing is ordered. COVID labs ordered. We do not suspect DVT or pulmonary embolism. He is clinically sober at this time. He is not homicidal or suicidal. He does not meet criteria for 1013. An infectious disease consult will be placed as a courtesy to the inpatient team, we will defer to them to follow with him. Patient is amenable to hospitalization at this time. He recently had a slightly elevated troponin during his previous hospitalization, this is likely a type II troponin leak. Hospital physician, Dr. Mayi Nguyen to admit Critical Care Time: Yes Critical care time in (mins) excluding proc time.: 35 Critical care attestation.: If time is entered above; I have spent that time in minutes in the direct care of this critically ill patient, excluding procedure time. ED Disposition Clinical Impression: Respiratory failure with hypoxia, Suspected COVID-19 virus infection, Hypokalemia Disposition: OP ADMIT IP TO THIS HOSP Is pt being admited?: Yes Does the pt Need Aspirin: No Condition: Serious Referrals: PRIMARY CARE, [Primary Care Provider] - 3-5 Days
[2020-04-19] MEDS ORDERED: cefTRIAXone/NS 1 GM/50 ML 1 GM/50 ML BAG IV ONE ×2 (07:49→15:00)
[2020-04-19] MEDS ORDERED: dexAMETHasone 4 MG/ML VIAL IV ONE (07:49)
[2020-04-19] MEDS ORDERED: SODIUM CHLORIDE 0.9% 500 ML 500 ML IV ONE (07:49)
[2020-04-19] MEDS ORDERED: AZITHROMYCIN 500 MG in SODIUM CHLORIDE 0.9% 250ML 250 ML IV SCH (08:00)
[2020-04-19 08:08] LABS: Basophils # (Auto) 0.1 K/mm3 (0.0-0.1); Basophils % (Auto) 0.4 % (0.0-1.8); Eosinophils % (Auto) 0.1 % (0.0-4.3); Hematocrit 38.5 % (35.5-45.6); Hemoglobin 12.4 gm/dl (11.8-15.2); Lymphocytes # (Auto) 0.9 K/mm3 (1.2-5.4); Lymphocytes % (Auto) 7.7 % (13.4-35.0); Mean Corpuscular HGB Conc 32 % (32-34); Mean Corpuscular Volume 76 fl (84-94); Monocytes # (Auto) 1.4 K/mm3 (0.0-0.8); Monocytes % (Auto) 11.9 % (0.0-7.3); Platelet Count 186 K/mm3 (140-440); Red Blood Count 5.05 M/mm3 (3.65-5.03); Red Cell Distribution Width 13.7 % (13.2-15.2)
[2020-04-19 08:21] LABS: INR 0.93 (0.87-1.13)
[2020-04-19 08:25] LABS: Alanine Aminotransferase 15 units/L (7-56); Albumin 2.7 g/dL (3.9-5); BUN/Creatinine Ratio 7; Blood Urea Nitrogen 6 mg/dL (9-20); Calcium 8.6 mg/dL (8.4-10.2); Hemolysis Index 2
[2020-04-19 08:27] LABS: C-Reactive Protein 13.4 mg/dL (0.00-1.30)
[2020-04-19] MEDS ORDERED: KETOROLAC 30 MG/1 ML INJ IV ONE (08:35)
[2020-04-19] MEDS ORDERED: POTASSIUM CHLORIDE ER 20 MEQ TAB PO ONE (08:36)
--- NOTE | 2020-04-19 08:43 | XRay Report ---
CHEST 1 VIEW INDICATION: Dyspnea. COMPARISON: 04/16/2020 FINDINGS: Support devices: None. Heart: Within normal limits. Lungs/Pleura: Previously described bilateral perihilar pulmonary opacities have decreased by 50%. No pleural effusion or pneumothorax. Additional findings: None. IMPRESSION: 50% improvement in the bilateral lung opacities. Signer Name: Donell Walker Jr, MD Signed: 04/19/2020 8:38 AM Workstation Name: [id number]
--- NOTE | 2020-04-19 10:35 | History and Physical Report ---
History of Present Illness Date of examination: 04/19/20 Date of admission: 04/19/20 09:07 Chief complaint: Worsening shortness of breath and cough History of present illness: [id number] patient, with a history of polysubstance abuse recreational drug use, recently discharged from this hospital after getting the treatment for acute respiratory failure, hypoxia, and presumed aspiration pneumonia. Was discharged on antibiotics, noncompliant with medications Presented to the emergency room with worsening cough chest wall pain generalized weakness and intermittent shortness of breath for the last 2 3 days. In ED patient was considered as high risk for COVID, placed in isolation and wilder PCR was sent Past History Past Medical History: other (Recent pneumonia) Past Surgical History: No surgical history Social history: smoking, alcohol abuse, other (Recreational drug use) Family history: no significant family history Medications and Allergies Allergies Allergy/AdvReac Type Severity Reaction Status Date / Time No Known Allergies Allergy Verified 04/16/20 03:09 Home Medications Medication Instructions Recorded Confirmed Last Taken Type LORazepam [Ativan] 0.5 mg PO Q6H PRN #16 tablet 04/17/20 Unknown Rx Review of Systems Constitutional: weakness, no weight loss, no weight gain, no fever, no chills Ears, nose, mouth and throat: no nasal congestion, no nasal discharge Cardiovascular: shortness of breath, no chest pain, no orthopnea Respiratory: cough, shortness of breath, dyspnea on exertion Gastrointestinal: no abdominal pain, no nausea, no vomiting Genitourinary Male: no dysuria, no hematuria Musculoskeletal: no myalgias, no arthritis Integumentary: no rash, no lesions Neurological: no seizures, no syncope Psychiatric: no anxiety, no depression Endocrine: no cold intolerance, no heat intolerance Hematologic/Lymphatic: no easy bruising, no easy bleeding Allergic/Immunologic: no urticaria, no allergic rhinitis Exam - Constitutional Vitals: Temp Pulse Resp BP Pulse Ox 99.2 F 96 H 14 109/69 100 04/19/20 09:00 04/19/20 09:01 04/19/20 09:01 04/19/20 09:30 04/19/20 09:30 General appearance: Present: mild distress, well-nourished - EENT Eyes: Present: PERRL, EOM intact - Neck Neck: Present: supple, normal ROM - Respiratory Respiratory effort: normal Respiratory: bilateral: diminished, rhonchi, negative: rales, wheezing - Cardiovascular Rhythm: regular Heart Sounds: Present: S1 & S2 - Extremities Extremities: no ischemia, No edema - Abdominal General gastrointestinal: Present: soft, non-tender, non-distended, normal bowel sounds - Integumentary Integumentary: Present: clear, warm - Musculoskeletal Musculoskeletal: strength equal bilaterally, generalized weakness - Psychiatric Psychiatric: appropriate mood/affect, cooperative - Neurologic Neurologic: moves all extremities HEART Score - HEART Score Troponin: Troponin T < 0.010 ng/mL (0.00-0.029) 04/19/20 07:35 Results - Labs CBC & Chem 7: 04/19/20 07:35 04/19/20 07:35 Labs: Abnormal lab results 04/19/20 04/19/20 04/19/20 Range/Units 07:35 07:35 07:35 WBC 12.1 H (4.5-11.0) K/mm3 RBC 5.05 H (3.65-5.03) M/mm3 MCV 76 L (84-94) fl MCH 25 L (28-32) pg Lymph % (Auto) 7.7 L (13.4-35.0) % [place] % (Auto) 11.9 H (0.0-7.3) % Lymph # (Auto) 0.9 L (1.2-5.4) K/mm3 [place] # (Auto) 1.4 H (0.0-0.8) K/mm3 Seg Neutrophils % 79.9 H (40.0-70.0) % Seg Neutrophils # 9.7 H (1.8-7.7) K/mm3 Sodium 136 L (137-145) mmol/L Potassium 3.4 L (3.6-5.0) mmol/L BUN 6 L (9-20) mg/dL Glucose 105 H (75-100) mg/dL Ferritin (30.0-300.0) ng/mL Lactate Dehydrogenase 237 H (91-180) units/L C-Reactive Protein 13.40 H (0.00-1.30) mg/dL Total Protein 6.1 L (6.3-8.2) g/dL Albumin 2.7 L (3.9-5) g/dL Salicylates (2.8-20.0) mg/dL Acetaminophen (10.0-30.0) ug/mL 04/19/20 04/19/20 04/19/20 Range/Units 07:35 07:35 07:51 WBC (4.5-11.0) K/mm3 RBC (3.65-5.03) M/mm3 MCV (84-94) fl MCH (28-32) pg Lymph % (Auto) (13.4-35.0) % [place] % (Auto) (0.0-7.3) % Lymph # (Auto) (1.2-5.4) K/mm3 [place] # (Auto) (0.0-0.8) K/mm3 Seg Neutrophils % (40.0-70.0) % Seg Neutrophils # (1.8-7.7) K/mm3 Sodium (137-145) mmol/L Potassium (3.6-5.0) mmol/L BUN (9-20) mg/dL Glucose (75-100) mg/dL Ferritin 342.7 H (30.0-300.0) ng/mL Lactate Dehydrogenase (91-180) units/L C-Reactive Protein (0.00-1.30) mg/dL Total Protein (6.3-8.2) g/dL Albumin (3.9-5) g/dL Salicylates 1.0 L (2.8-20.0) mg/dL Acetaminophen 5.0 L (10.0-30.0) ug/mL Assessment and Plan --PUI/suspicion for COVID-19; COVID-19 test is negative Continue supportive care --Bilateral pneumonia; Patient was admitted and discharged recently Continue antibiotics Rocephin and Zithromax Follow cultures ID ID following --Leukocytosis; Secondary to pneumonia Closely monitor --Hypokalemia; Replenish with KCl, monitor electrolytes --Mild hypo-natremia; Gentle hydration with normal saline --History of polyp substance abuse; Marijuana, cocaine, amphetamine, tobacco, Alcohol Patient counseled to quit recreational drug use Smoking cessation advised, nicotine patch as needed We will closely monitor the patient and adjust management as needed Plan of care reviewed with the patient and his nurse
[2020-04-19] MEDS ORDERED: AZITHROMYCIN 250 MG TAB PO SCH (14:00)
--- NOTE | 2020-04-19 14:04 | Consultation ---
History of Present Illness - Reason for Consult Consult date: 04/19/20 Pneumonia Requesting physician: ANAYELI LOMAX - History of Present Illness The patient is a 50-year-old male with history of polysubstance abuse was recently discharged from the hospital on 04/16/2020 after being admitted with pneumonia, possibility of crack lung due to snorting of cocaine, received IV antibiotics and was discharged on levofloxacin. He returned to the emergency room today with cough, shortness of breath. He did not continue his antibiotics. No fever. Labs showed mild leukocytosis, procalcitonin 1.1, CRP 13.4, ferritin 342.7. COVID-19 PCR is pending. Not hypoxic, oxygen saturation 99% on room air. Review of Systems: reviewed in the chart, unable to obtain directly due to PPE preservation and minimize risk of transmission Medications and Allergies Allergies Allergy/AdvReac Type Severity Reaction Status Date / Time No Known Allergies Allergy Verified 04/16/20 03:09 Home Medications Medication Instructions Recorded Confirmed Last Taken Type LORazepam [Ativan] 0.5 mg PO Q6H PRN #16 tablet 04/17/20 Unknown Rx Active Meds: Active Medications Acetaminophen (Tylenol) 650 mg PO Q4H PRN PRN Reason: Pain, Mild (1-3) Azithromycin (Zithromax) 500 mg PO QDAY RUBÉN Stop: 04/22/20 13:59 Benzonatate (Tessalon Perles) 100 mg PO Q8H PRN PRN Reason: Cough Enoxaparin Sodium (Enoxaparin) 40 mg SUB-Q QDAY@2200 RUBÉN; Protocol Ceftriaxone Sodium (Rocephin/Ns 2 Gm/100 Ml) 2 gm in 100 mls @ 200 mls/hr IV Q24HR RUBÉN; Protocol Stop: 04/22/20 13:59 Physical Examination - Physical Exam Narrative exam: Physical Exam (reviewed in chart due to PPE conservation and minimize risk of transmission) Constitutional: limited due to PPE conservation strategy Head, Ears, Nose: limited due to PPE conservation strategy Eyes: limited due to PPE conservation strategy Neck: limited due to PPE conservation strategy Oral: limited due to PPE conservation strategy Cardiovascular: limited due to PPE conservation strategy Respiratory: limited due to PPE conservation strategy GI: limited due to PPE conservation strategy Musculoskeletal: limited due to PPE conservation strategy Skin: limited due to PPE conservation strategy Hem/Lymphatic: limited due to PPE conservation strategy Psych: limited due to PPE conservation strategy Neurological: limited due to PPE conservation strategy - Constitutional Vitals: Vital Signs Temp Pulse Resp BP Pulse Ox 99.5 F 77 20 105/73 99 04/19/20 11:29 04/19/20 11:29 04/19/20 11:29 04/19/20 11:52 04/19/20 11:29 Temperature -Last 24 Hours Temperature 99.5 F Temperature 99.2 F Results - Labs CBC & Chem 7: 04/19/20 07:35 04/19/20 07:35 Labs: Abnormal lab results 04/19/20 04/19/20 04/19/20 Range/Units 07:35 07:35 07:35 WBC 12.1 H (4.5-11.0) K/mm3 RBC 5.05 H (3.65-5.03) M/mm3 MCV 76 L (84-94) fl MCH 25 L (28-32) pg Lymph % (Auto) 7.7 L (13.4-35.0) % [place] % (Auto) 11.9 H (0.0-7.3) % Lymph # (Auto) 0.9 L (1.2-5.4) K/mm3 [place] # (Auto) 1.4 H (0.0-0.8) K/mm3 Seg Neutrophils % 79.9 H (40.0-70.0) % Seg Neutrophils # 9.7 H (1.8-7.7) K/mm3 Sodium 136 L (137-145) mmol/L Potassium 3.4 L (3.6-5.0) mmol/L BUN 6 L (9-20) mg/dL Glucose 105 H (75-100) mg/dL Ferritin (30.0-300.0) ng/mL Lactate Dehydrogenase 237 H (91-180) units/L C-Reactive Protein 13.40 H (0.00-1.30) mg/dL Total Protein 6.1 L (6.3-8.2) g/dL Albumin 2.7 L (3.9-5) g/dL Salicylates (2.8-20.0) mg/dL Acetaminophen (10.0-30.0) ug/mL 04/19/20 04/19/20 04/19/20 Range/Units 07:35 07:35 07:51 WBC (4.5-11.0) K/mm3 RBC (3.65-5.03) M/mm3 MCV (84-94) fl MCH (28-32) pg Lymph % (Auto) (13.4-35.0) % [place] % (Auto) (0.0-7.3) % Lymph # (Auto) (1.2-5.4) K/mm3 [place] # (Auto) (0.0-0.8) K/mm3 Seg Neutrophils % (40.0-70.0) % Seg Neutrophils # (1.8-7.7) K/mm3 Sodium (137-145) mmol/L Potassium (3.6-5.0) mmol/L BUN (9-20) mg/dL Glucose (75-100) mg/dL Ferritin 342.7 H (30.0-300.0) ng/mL Lactate Dehydrogenase (91-180) units/L C-Reactive Protein (0.00-1.30) mg/dL Total Protein (6.3-8.2) g/dL Albumin (3.9-5) g/dL Salicylates 1.0 L (2.8-20.0) mg/dL Acetaminophen 5.0 L (10.0-30.0) ug/mL - Imaging and Cardiology Chest x-ray: report reviewed, image reviewed (Chest x-ray revealed bilateral patchy infiltrates however there is interval improvement.) Assessment and Plan Cultures: Coronavirus PCR: Pending 05/09/2020 blood culture: In process A/P: 50-year-old male with history of polysubstance abuse was recently discharged from the hospital on 04/16/2020 after being admitted with pneumonia, possibility of crack lung due to snorting of cocaine, received IV antibiotics and was discharged on levofloxacin: #Bilateral pneumonia: Acute bacterial infection versus crack lung versus COVID- 19 #Polysubstance abuse Recs: Follow up COVID-19 PCR, not hypoxic, so even if positive, would not consider steroids or Remdesivir Procal is elevated, didn't complete recent abx, IV Ceftriaxone and azithromycin ordered x 3 days Sarah Bright MD, FACP [facility] ([facility] O: [phone] F: [phone]
[2020-04-19] MEDS ORDERED: cefTRIAXone/NS 2 GM/100 ML 2 GM/100 ML BAG IV SCH (15:00)
[2020-04-19] MEDS: ENOXAPARIN 40 MG/0.4 ML INJ SUB-Q SCH (22:25)
[2020-04-19] MEDS: BENZONATATE 100 MG CAP PO PRN (22:25)
[2020-04-20 07:05] LABS: Basophils # (Auto) 0.1 K/mm3 (0.0-0.1); Basophils % (Auto) 0.6 % (0.0-1.8); Hematocrit 36.8 % (35.5-45.6); Hemoglobin 11.5 gm/dl (11.8-15.2); Lymphocytes # (Auto) 1.1 K/mm3 (1.2-5.4); Lymphocytes % (Auto) 7.4 % (13.4-35.0); Mean Corpuscular HGB Conc 31 % (32-34); Mean Corpuscular Volume 77 fl (84-94); Monocytes # (Auto) 1.5 K/mm3 (0.0-0.8); Monocytes % (Auto) 10.3 % (0.0-7.3); Platelet Count 249 K/mm3 (140-440); Red Blood Count 4.77 M/mm3 (3.65-5.03); Red Cell Distribution Width 13.6 % (13.2-15.2)
[2020-04-20 07:25] LABS: BUN/Creatinine Ratio 10; Blood Urea Nitrogen 8 mg/dL (9-20); Calcium 8.4 mg/dL (8.4-10.2); Hemolysis Index 1
--- NOTE | 2020-04-20 08:36 | Progress Note ---
Assessment and Plan - Patient Problems (1) Respiratory failure with hypoxia Current Visit: Yes Status: Acute Plan to address problem: Likely 2/2 to PNA Continue respiratory care oxygen supplement PRN Antibiotic therapy- IV Ceftriaxone and azithromycin ordered x 3 days (2) Suspected COVID-19 virus infection Current Visit: Yes Status: Acute Plan to address problem: Covid test negative (3) Alcoholic ketoacidosis Current Visit: No Status: Acute Plan to address problem: Advised to quit alcohol use Monitor for withdrawal (4) Aspiration pneumonitis Current Visit: No Status: Acute Plan to address problem: Bilateral pneumonia; Patient was admitted and discharged recently Continue antibiotics Rocephin and Zithromax ID following (5) Polysubstance abuse Current Visit: No Status: Acute Plan to address problem: -History of polyp substance abuse; Marijuana, cocaine, amphetamine, tobacco, Alcohol Patient advised to quit recreational drug use Smoking cessation advised, nicotine patch as needed (6) Hypokalemia Current Visit: Yes Status: Acute Plan to address problem: Replete potassium Am lab -monitor electrolytes Subjective Date of service: 04/20/20 Principal diagnosis: PNA Interval history: Patient seen at bedside. patient is oxygen per N/C at 2 liters today He admits tobacco use abotu 14 sticks daily Reviewed lab, mar and v/s Patient positive for substance use and PNA on chest x-ray Reviewed ID note-continue -IV Ceftriaxone and azithromycin ordered x 3 days Objective - Constitutional Vitals: Vital Signs - 12hr 04/19/20 04/19/20 04/20/20 20:50 22:02 05:08 Temperature 97.9 F 97.7 F Pulse Rate 92 H 82 Respiratory 20 20 Rate Blood Pressure 115/77 119/80 O2 Sat by Pulse 94 95 91 Oximetry General appearance: Present: mild distress - EENT Eyes: PERRL, EOM intact ENT: hearing intact, clear oral mucosa Ears: bilateral: normal - Neck Neck: supple, normal ROM - Respiratory Respiratory effort: normal, other (on supplemental oxygen) Respiratory: bilateral: CTA - Breasts Breasts: normal - Cardiovascular Heart rate: 74 Rhythm: regular Heart Sounds: Present: S1 & S2. Absent: gallop, rub Extremities: pulses intact, No edema, normal color, Full ROM - Gastrointestinal General gastrointestinal: Present: soft, non-tender, non-distended, normal bowel sounds - Genitourinary Male genitourinary: normal - Integumentary Integumentary: clear, warm, dry - Musculoskeletal Musculoskeletal: 1, strength equal bilaterally - Neurologic Neurologic: moves all extremities - Psychiatric Psychiatric: appropriate mood/affect, intact judgment & insight, memory intact, other (anxiety-started on PRN xanax) - Labs CBC & Chem 7: 04/20/20 06:05 04/20/20 06:05 Labs: Abnormal lab results 04/20/20 04/20/20 Range/Units 06:05 06:05 WBC 14.6 H (4.5-11.0) K/mm3 Hgb 11.5 L (11.8-15.2) gm/dl MCV 77 L (84-94) fl MCH 24 L (28-32) pg MCHC 31 L (32-34) % Lymph % (Auto) 7.4 L (13.4-35.0) % [place] % (Auto) 10.3 H (0.0-7.3) % Lymph # (Auto) 1.1 L (1.2-5.4) K/mm3 [place] # (Auto) 1.5 H (0.0-0.8) K/mm3 Seg Neutrophils % 81.7 H (40.0-70.0) % Seg Neutrophils # 11.9 H (1.8-7.7) K/mm3 Potassium 3.5 L (3.6-5.0) mmol/L BUN 8 L (9-20) mg/dL Glucose 133 H (75-100) mg/dL HEART Score - HEART Score Troponin: Troponin T < 0.010 ng/mL (0.00-0.029) 04/19/20 07:35
[2020-04-20] MEDS ORDERED: POTASSIUM CHLORIDE ER 20 MEQ TAB PO NR (09:00)
[2020-04-20] MEDS: cefTRIAXone/NS 2 GM/100 ML 2 GM/100 ML BAG IV SCH (09:20)
[2020-04-20] MEDS ORDERED: AZITHROMYCIN 250 MG TAB PO SCH (10:00)
[2020-04-20] MEDS: BENZONATATE 100 MG CAP PO PRN (14:50)
[2020-04-20] MEDS ORDERED: ONDANSETRON 4 MG/2 ML INJ IV PRN (14:56)
[2020-04-20] MEDS: ALPRAZolam 0.25 MG TAB PO PRN (15:27)
--- NOTE | 2020-04-20 15:32 | Progress Note ---
Assessment and Plan Cultures: Coronavirus PCR: negative 05/09/2020 blood culture: negative A/P: 50-year-old male with history of polysubstance abuse was recently discharged from the hospital on 04/16/2020 after being admitted with pneumonia, possibility of crack lung due to snorting of cocaine, received IV antibiotics and was discharged on levofloxacin: #Bilateral pneumonia: Acute bacterial infection versus crack lung. COVID-19 is negative #Polysubstance abuse Recs: continue IV Ceftriaxone Azithromycin switched to Doxycycline PO recheck CBC tomorrow, if improved, can discharge on PO Ceftin 500 mg BID + PO Doxycycline 100 mg BID x 5 days Sarah Bright MD, FACP [facility] ([facility] O: [phone] F: [phone] Subjective Date of service: 04/20/20 Principal diagnosis: PNA Interval history: No fever. Coughing. Not on oxygen. COVID negative. Objective - Exam Narrative Exam: Physical Exam: Constitutional: awake, alert, no distress Head, Ears, Nose: Normocephalic, atraumatic. External ears, nose normal Eyes: Conjunctivae/corneas clear. No icterus. No ptosis. Neck: Supple, no meningeal signs Cardiovascular: S1, S2 normal. Respiratory: few rhonchi, decreased air movement bilaterally GI: Soft, non-tender; bowel sounds normal. No peritoneal signs Musculoskeletal: No pedal edema, no cyanosis. Skin: No rash or abscess Hem/Lymphatic: No palpable cervical or supraclavicular nodes. No lymphangitis Psych: mood ok, affect normal Neurological: awake, alert, oriented, answering questions. - Constitutional Vitals: Vital Signs Temp Pulse Resp BP Pulse Ox 98.5 F 80 22 122/81 94 04/20/20 11:27 04/20/20 11:27 04/20/20 11:27 04/20/20 11:27 04/20/20 11:27 Temperature -Last 24 Hours Temperature 98.5 F Temperature 97.7 F Temperature 97.9 F - Labs CBC & Chem 7: 04/20/20 06:05 04/20/20 06:05 Labs: Abnormal lab results 04/20/20 04/20/20 Range/Units 06:05 06:05 WBC 14.6 H (4.5-11.0) K/mm3 Hgb 11.5 L (11.8-15.2) gm/dl MCV 77 L (84-94) fl MCH 24 L (28-32) pg MCHC 31 L (32-34) % Lymph % (Auto) 7.4 L (13.4-35.0) % [place] % (Auto) 10.3 H (0.0-7.3) % Lymph # (Auto) 1.1 L (1.2-5.4) K/mm3 [place] # (Auto) 1.5 H (0.0-0.8) K/mm3 Seg Neutrophils % 81.7 H (40.0-70.0) % Seg Neutrophils # 11.9 H (1.8-7.7) K/mm3 Potassium 3.5 L (3.6-5.0) mmol/L BUN 8 L (9-20) mg/dL Glucose 133 H (75-100) mg/dL
[2020-04-20] MEDS: ENOXAPARIN 40 MG/0.4 ML INJ SUB-Q SCH (21:05)
[2020-04-20] MEDS: DOXYCYCLINE 100 MG CAP PO SCH (21:05)
[2020-04-20] MEDS ORDERED: ZOLPIDEM 5 MG TAB PO ONE (23:15)
--- NOTE | 2020-04-21 07:59 | Progress Note ---
Assessment and Plan - Patient Problems (1) Respiratory failure with hypoxia Current Visit: Yes Status: Acute Plan to address problem: Likely 2/2 to PNA-ptatient appear stable on room air oxygen supplement PRN Antibiotic therapy changed to oral (2) Suspected COVID-19 virus infection Current Visit: Yes Status: Acute Plan to address problem: Covid test negative Elevated d-dimer-cta chest ordered (3) Alcoholic ketoacidosis Current Visit: No Status: Acute Plan to address problem: Advised to quit alcohol use Monitor for withdrawal (4) Aspiration pneumonitis Current Visit: No Status: Acute Plan to address problem: Bilateral pneumonia; Patient was admitted and discharged recently Continue antibiotics Rocephin and Zithromax ID following (5) Polysubstance abuse Current Visit: No Status: Acute Plan to address problem: -History of polyp substance abuse; Marijuana, cocaine, amphetamine, tobacco, Alcohol Patient advised to quit recreational drug use Smoking cessation advised, nicotine patch as needed (6) Hypokalemia Current Visit: Yes Status: Acute Plan to address problem: Low potassium resolved-3.9 today Am lab -monitor electrolytes (7) Elevated d-dimer Current Visit: Yes Status: Acute Plan to address problem: d-dimer 612 ? cause Covid negative Ordered CTA of the chest-if negative D/c patient Patient will need medication assitance SW consulted Subjective Date of service: 04/21/20 Principal diagnosis: PNA Interval history: Patient seen at bedside. Reviewed ID note Azithromycin switched to Doxycycline PO ID recommended- to recheck CBC today, if improved, can discharge on PO Ceftin 500 mg BID + PO Doxycycline 100 mg BID x 5 days Reviewed lab, mar and v/s-elevated WBC resolved, but d-dimer elevated CTA of the chest ordered-to r/o PE-if negative-will d/c patient Objective - Constitutional Vitals: Vital Signs - 12hr 04/20/20 22:59 Temperature 98.5 F Pulse Rate 111 H Respiratory 20 Rate Blood Pressure 137/78 O2 Sat by Pulse 90 Oximetry - Labs CBC & Chem 7: 04/21/20 04:00 04/21/20 08:19 HEART Score - HEART Score Troponin: Troponin T < 0.010 ng/mL (0.00-0.029) 04/19/20 07:35
[2020-04-21] MEDS: ACETAMINOPHEN 325 MG TAB PO PRN (08:37)
[2020-04-21 08:58] LABS: Hematocrit 37.6 % (35.5-45.6); Hemoglobin 12.1 gm/dl (11.8-15.2); Mean Corpuscular HGB Conc 32 % (32-34); Mean Corpuscular Volume 77 fl (84-94); Platelet Count 272 K/mm3 (140-440); Red Blood Count 4.92 M/mm3 (3.65-5.03); Red Cell Distribution Width 13.7 % (13.2-15.2)
[2020-04-21 09:15] LABS: BUN/Creatinine Ratio 7; Blood Urea Nitrogen 6 mg/dL (9-20); Calcium 8.9 mg/dL (8.4-10.2); Hemolysis Index 1
[2020-04-21] MEDS: DOXYCYCLINE 100 MG CAP PO SCH ×2 (09:19→20:59)
[2020-04-21] MEDS: cefTRIAXone/NS 2 GM/100 ML 2 GM/100 ML BAG IV SCH (09:19)
[2020-04-21 11:22] LABS: Basophils % (Manual) 0 % (0.0-1.8); Total Cells Counted 100
[2020-04-21 11:24] LABS: Platelet Estimate Consistent w Auto; Target Cells Few
[2020-04-21] MEDS: ENOXAPARIN 40 MG/0.4 ML INJ SUB-Q SCH (20:59)
[2020-04-21] MEDS: ALPRAZolam 0.25 MG TAB PO PRN (20:59)
[2020-04-22] MEDS: ACETAMINOPHEN 325 MG TAB PO PRN (08:36)
[2020-04-22] MEDS: DOXYCYCLINE 100 MG CAP PO SCH (10:00)
--- NOTE | 2020-04-22 11:45 | Progress Note ---
Assessment and Plan Cultures: Coronavirus PCR: negative 05/09/2020 blood culture: negative A/P: 50-year-old male with history of polysubstance abuse was recently discharged from the hospital on 04/16/2020 after being admitted with pneumonia, possibility of crack lung due to snorting of cocaine, received IV antibiotics and was discharged on levofloxacin: #Bilateral pneumonia: Acute bacterial infection versus crack lung. COVID-19 is negative #Polysubstance abuse Recs: switched to PO Ceftin 500 mg BID + PO Doxycycline 100 mg BID x 3 days Sarah Bright MD, FACP [facility] O: [phone] F: [phone] Subjective Date of service: 04/22/20 Principal diagnosis: PNA Interval history: No fever. Cough+ but not short of breath. Remains on room air. Objective - Exam Narrative Exam: Physical Exam: Constitutional: awake, alert, no distress Head, Ears, Nose: Normocephalic, atraumatic. External ears, nose normal Eyes: Conjunctivae/corneas clear. No icterus. No ptosis. Neck: Supple, no meningeal signs Cardiovascular: S1, S2 normal. Respiratory: few rhonchi b/l GI: Soft, non-tender; bowel sounds normal. No peritoneal signs Musculoskeletal: No pedal edema, no cyanosis. Skin: No rash or abscess Hem/Lymphatic: No palpable cervical or supraclavicular nodes. No lymphangitis Psych: mood ok, affect normal Neurological: awake, alert, oriented, answering questions. - Constitutional Vitals: Vital Signs Temp Pulse Resp BP Pulse Ox 98.7 F 74 16 110/73 95 04/22/20 05:36 04/22/20 05:36 04/22/20 05:36 04/22/20 05:36 04/22/20 05:36 Temperature -Last 24 Hours Temperature 98.7 F Temperature 99.4 F - Labs CBC & Chem 7: 04/21/20 04:00 04/21/20 08:19
--- NOTE | 2020-04-22 12:36 | Discharge Summary ---
Providers - Providers Date of Admission: 04/19/20 09:07 Attending physician: SUSSY SANTOS 04/19/20 07:50 Consult to Physician [CONS] Urgent Comment: Consulting Provider: MARIAN HUGHES Physician Instructions: Reason For Exam: pna, covid vs bacterial vs crack lung 04/21/20 16:04 Consult to Case Management [CONS] Routine Services Needed at Discharge: Other Notified:: cm Additional Physician Instructions: medication assistance antibiotics Primary care physician: INSPECTOR FABRIC Hospitalization Hospital course: [id number] patient with a history of polysubstance abuse recently discharged from this hospital on 04/16 after getting the treatment for acute respiratory failure, hypoxia, and presumed aspiration pneumonia vs cocaine induced lung injury and was discharged on levofloxacin however he was noncompliant with medications. He presented to the emergency room with worsening cough, chest wall pain, generalized weakness and intermittent shortness of breath for the 2-3 days prior to admission. Patient states that prior to this admission he abused cocaine, heroin, methamphetamine, and crack because he was depressed. In the emergency department COVID-19 PCR was sent and it was resulted negative. On 04/21 his d-dimer resulted at 612.67 and a chest CTA was ordered which is pending at this time. He will be discharged with p.o. Ceftin 500 mg twice daily and p .o. doxycycline 100 mg twice daily for 3 days. 04/22 CTA chest showed no CT evidence for pulmonary embolism and moderate bilateral central airspace disease could represent central pulmonary edema versus pneumonia. Patient will need to follow-up with his primary care doctor within 1 to 2 weeks of discharge. Substance abuse cessation strongly advised. (1) Respiratory failure with hypoxia Current Visit: Yes Status: Resolved Plan to address problem: - Likely 2/2 to PNA - Discharged on room air (2) Suspected COVID-19 virus infection Current Visit: Yes Status: Resolved Plan to address problem: - Covid 19 PCR (-) - 04/21 d-dimer of 1612.67, CTA chest pending (3) Alcoholic ketoacidosis Current Visit: No Status: Resolved Plan to address problem: - Alcohol cessation strongly encouraged (4) Aspiration pneumonitis Current Visit: No Status: Acute Plan to address problem: - Admitted with Bilateral pneumonia - Patient was recently discharged on 04/16 with p.o. levofloxacin however he was noncompliant Continue antibiotics Rocephin and Zithromax - Discharged with PO Ceftin 500 mg BID + PO Doxycycline 100 mg BID x 3 days (5) Polysubstance abuse Current Visit: No Status: Chronic Plan to address problem: - History of polyp substance abuse; Marijuana, cocaine, amphetamine, tobacco, Alcohol - Cessation strongly encouraged (6) Hypokalemia Current Visit: Yes Status: Resolved Plan to address problem: - Admit potassium on 04/19 3.4, 04/20 3.5 - Discharge potassium 04/21 3.9 (7) Elevated d-dimer Current Visit: Yes Status: Acute Plan to address problem: - 04/21 d-dimer 612 ? cause - 04/22 CTA chest pending Disposition: DC-01 TO HOME OR SELFCARE Time spent for discharge: 45 Core Measure Documentation - Palliative Care Palliative Care/ Comfort Measures: Not Applicable - Core Measures Any of the following diagnoses?: none Exam - Constitutional Vitals: Temp Pulse Resp BP Pulse Ox 98.7 F 74 16 110/73 95 04/22/20 05:36 04/22/20 05:36 04/22/20 05:36 04/22/20 05:36 04/22/20 05:36 General appearance: Present: no acute distress - EENT Eyes: Present: PERRL, EOM intact ENT: hearing intact, clear oral mucosa, poor dentition - Neck Neck: Present: supple, normal ROM - Respiratory Respiratory effort: normal Respiratory: bilateral: CTA - Cardiovascular Rhythm: regular Heart Sounds: Present: S1 & S2. Absent: systolic murmur, diastolic murmur - Extremities Extremities: no ischemia, pulses intact, pulses symmetrical, No edema, normal temperature, normal color, Full ROM Peripheral Pulses: within normal limits - Abdominal General gastrointestinal: Present: soft, non-tender, non-distended, normal bowel sounds - Integumentary Integumentary: Present: clear, warm, dry - Musculoskeletal Musculoskeletal: strength equal bilaterally - Psychiatric Psychiatric: appropriate mood/affect, cooperative - Neurologic Neurologic: CNII-XII intact, no focal deficits, moves all extremities - Allied Health Allied health notes reviewed: nursing, social work, case management Plan Activity: no restrictions Diet: regular Special Instructions: smoking cessation, other (Cessation of polysubstance abuse (cocaine, methamphetamine, heroin, marijuana, alcohol)) Additional Instructions: Report to the nearest emergency department or contact primary care physician if you experience worsening symptoms. Follow-up with your primary care physician within 1 to 2 weeks of discharge. You are strongly encouraged to abstain from alcohol, tobacco, marijuana, cocaine, and methamphetamine. Follow up with: PRIMARY CARE, [Primary Care Provider] - 3-5 Days Prescriptions: cefUROXime [Ceftin] 500 mg PO Q12HR #6 tablet DOXYCYCLINE Hyclate [Vibramycin CAP] 100 mg PO BID #6 tab
--- NOTE | 2020-04-22 14:24 | Cat Scan Report ---
CTA CHEST WITH IV CONTRAST INDICATION: Chest pain. TECHNIQUE: Axial CT images were obtained through the chest after injection of 100 cc Omni 350 IV contrast. 3 chilango ne MIP reconstructions were produced. All CT scans at this location are performed using CT dose reduc tion for ALARA by means of automated exposure control. COMPARISON: None available. FINDINGS: Exam is limited secondary to moderate respiratory motion artifact. PULMONARY ARTERIES: No definite pulmonary emboli THORACIC AORTA: No acute abnormality. HEART: Normal. CORONARY ARTERIES: No significant calcification. PLEURA: No pleural effusion. No pneumothorax. LYMPH NODES: No significant adenopathy. LUNGS: Moderate central airspace disease right middle, both upper and lower lobes. ADDITIONAL FINDINGS: None. UPPER ABDOMEN: No acute findings. Embolization coils within splenic artery. SKELETAL STRUCTURES: No significant osseous abnormality. IMPRESSION: 1. No CT evidence for pulmonary embolism. 2. Moderate bilateral central airspace disease could represent central pulmonary edema versus pneumon ia. Follow-up chest radiographs and clinical correlation recommended Signer Name: Misha Luciano MD Signed: 04/22/2020 2:19 PM Workstation Name: [id number]
[2020-04-22 14:41] VITALS: BP 124/70
== END 2020-04-22 15:00 | disposition home or self-care (01) | DRG 177 ==
LOC: ED 06:54 → 3A 09:07
PROVIDERS: ADMIT Internal Medicine; ATTEND Hospitalist
DX: J69.0 Pneumonitis due to inhalation of food and vomit (principal); J96.91 Respiratory failure, unspecified with hypoxia; E87.1 Hypo-osmolality and hyponatremia; E87.2 Acidosis; Z20.828 Contact with and (suspected) exposure to other viral communicable diseases; F17.200 Nicotine dependence, unspecified, uncomplicated; E87.6 Hypokalemia; F19.10 Other psychoactive substance abuse, uncomplicated
CPT/HCPCS: 36415; 71045; 71275; 80048; 80053; 80320; 82140; 82550; 82728; 83615; 83735; 84145; 84484; 85007; 85025; 85379; 85610; 86140; 87040; 87641; 93005; 94760; 96374; 99406; G0378; G0480; J0456; J0696; J1100; J1650; J1885; J1956; J2405; J7040; J7050; Q9967; U0003-CS

== ENCOUNTER 2020-05-01 09:31 | Emergency (ER) | payer SELFPAY ==
--- NOTE | 2020-05-01 11:18 | XRay Report ---
CHEST 2 VIEWS INDICATION: COUGH, FEVER. COMPARISON: AP chest 04/19/2020. CTA chest 04/22/2020 FINDINGS: Support devices: None. Heart: Within normal limits. Lungs/pleura: Subtle patchy bilateral hilar airspace disease is again suggested on chest x-ray. No o verwhelming change is appreciated since the CTA chest dated 04/22/2020. No consolidation, pleural effu carolyne or pneumothorax has developed. Additional findings: None. IMPRESSION: Subtle bilateral lung opacities persist concerning for atypical pneumonia or viral infection. Signer Name: Donell Walker Jr, MD Signed: 05/01/2020 11:13 AM Workstation Name: [id number]
--- NOTE | 2020-05-01 12:40 | Emergency Department Report ---
ED General Adult HPI - General Chief complaint: Dyspnea/Respdistress Stated complaint: CHEST PAIN Time Seen by Provider: 05/01/20 12:37 Source: patient Mode of arrival: Ambulatory Limitations: No Limitations - History of Present Illness Initial comments: 50-year-old -Luxembourger male patient presents with complaints of right chest pain with deep inhalation only x 2 days. Patient was admitted here on 04/16/20 for overdosing and pneumonia with hypoxia in 04/20/2024 worsening pneumonia. During his last admission, patient was evaluated by infectious disease and discharged home on Ceftin and doxy for 3 days. Patient reports he did not fill his antibiotic prescriptions until 5 to 6 days ago when he began having pain in his chest with inhalation. He reports that the pain resolved while taking the antibiotics and then returned once the antibiotics were completed. He denies any shortness of breath, fever/chills/sweats, history of RI/CVA/DVT, leg pain/swelling, hemoptysis, or other symptoms. Patient is a smoker - Related Data Previous Rx's Medication Instructions Recorded Last Taken Type LORazepam [Ativan] 0.5 mg PO Q6H PRN #16 tablet 04/17/20 Unknown Rx Acetaminophen [Acetaminophen TAB] 650 mg PO Q4H PRN tablet 04/22/20 Unknown Rx Benzonatate [Tessalon Perles] 100 mg PO Q8H PRN #10 capsule 04/22/20 Unknown Rx DOXYCYCLINE Hyclate [Vibramycin 100 mg PO BID 5 Days #10 tab 05/01/20 Unknown Rx CAP] cefUROXime [Ceftin] 500 mg PO Q12HR 5 Days #10 tablet 05/01/20 Unknown Rx Allergies Allergy/AdvReac Type Severity Reaction Status Date / Time No Known Allergies Allergy Verified 04/16/20 03:09 ED Review of Systems ROS: Stated complaint: CHEST PAIN Other details as noted in HPI Constitutional: denies: chills, diaphoresis, fever, malaise, weakness Respiratory: denies: cough, shortness of breath Cardiovascular: as per HPI. denies: palpitations, edema, syncope Gastrointestinal: denies: abdominal pain, nausea, vomiting, diarrhea Genitourinary: denies: urgency, dysuria Musculoskeletal: denies: back pain Skin: denies: change in color Neurological: denies: headache ED Past Medical Hx - Past Medical History Previous Medical History?: No Hx Congestive Heart Failure: No Hx Diabetes: No Hx Asthma: No Hx COPD: No Hx HIV: No - Surgical History Past Surgical History?: No - Social History Smoking Status: Current Every Day Smoker - Medications Home Medications: Home Medications Medication Instructions Recorded Confirmed Last Taken Type LORazepam [Ativan] 0.5 mg PO Q6H PRN #16 tablet 04/17/20 04/22/20 Unknown Rx Acetaminophen [Acetaminophen TAB] 650 mg PO Q4H PRN tablet 04/22/20 Unknown Rx Benzonatate [Tessalon Perles] 100 mg PO Q8H PRN #10 capsule 04/22/20 Unknown Rx DOXYCYCLINE Hyclate [Vibramycin 100 mg PO BID 5 Days #10 tab 05/01/20 Unknown Rx CAP] cefUROXime [Ceftin] 500 mg PO Q12HR 5 Days #10 tablet 05/01/20 Unknown Rx ED Physical Exam - General Limitations: No Limitations General appearance: alert, in no apparent distress - Head Head exam: Present: atraumatic, normocephalic - Eye Eye exam: Present: normal appearance - ENT ENT exam: Present: mucous membranes moist - Neck Neck exam: Present: normal inspection - Respiratory Respiratory exam: Present: normal lung sounds bilaterally. Absent: respiratory distress, wheezes, rales, rhonchi, chest wall tenderness - Cardiovascular Cardiovascular Exam: Present: regular rate, normal rhythm, normal heart sounds - GI/Abdominal GI/Abdominal exam: Present: soft. Absent: distended, tenderness - Extremities Exam Extremities exam: Absent: calf tenderness (No swelling or pain noted bilaterally to left) - Neurological Exam Neurological exam: Present: alert, oriented X3 - Psychiatric Psychiatric exam: Present: normal affect, normal mood - Skin Skin exam: Present: warm, dry, intact, normal color. Absent: rash, cyanosis, diaphoretic ED Course Vital Signs 05/01/20 05/01/20 10:00 13:13 Temperature 98.4 F 98.7 F Pulse Rate 99 H 90 Respiratory 18 18 Rate Blood Pressure 92/62 110/72 [Right] O2 Sat by Pulse 97 97 Oximetry ED Medical Decision Making - Lab Data Result diagrams: 05/01/20 13:46 05/01/20 13:46 Lab Results 05/01/20 05/01/20 Range/Units 13:46 13:46 WBC 8.6 (4.5-11.0) K/mm3 RBC 4.94 (3.65-5.03) M/mm3 Hgb 11.8 (11.8-15.2) gm/dl Hct 38.2 (35.5-45.6) % MCV 77 L (84-94) fl MCH 24 L (28-32) pg MCHC 31 L (32-34) % RDW 13.9 (13.2-15.2) % Plt Count 413 (140-440) K/mm3 Lymph % (Auto) 15.4 (13.4-35.0) % [place] % (Auto) 11.7 H (0.0-7.3) % Eos % (Auto) 0.6 (0.0-4.3) % Baso % (Auto) 1.7 (0.0-1.8) % Lymph # (Auto) 1.3 (1.2-5.4) K/mm3 [place] # (Auto) 1.0 H (0.0-0.8) K/mm3 Eos # (Auto) 0.1 (0.0-0.4) K/mm3 Baso # (Auto) 0.1 (0.0-0.1) K/mm3 Seg Neutrophils % 70.6 H (40.0-70.0) % Seg Neutrophils # 6.0 (1.8-7.7) K/mm3 Sodium 140 (137-145) mmol/L Potassium 4.2 (3.6-5.0) mmol/L Chloride 103.3 (98-107) mmol/L Carbon Dioxide 24 (22-30) mmol/L Anion Gap 17 mmol/L BUN 9 (9-20) mg/dL Creatinine 0.8 (0.8-1.3) mg/dL Estimated GFR > 60 ml/min BUN/Creatinine Ratio 11 % Glucose 81 (75-100) mg/dL Calcium 8.7 (8.4-10.2) mg/dL Total Bilirubin 0.20 (0.1-1.2) mg/dL AST 11 (5-40) units/L ALT 9 (7-56) units/L Alkaline Phosphatase 43 (35-129) units/L Total Protein 6.3 (6.3-8.2) g/dL Albumin 3.0 L (3.9-5) g/dL Albumin/Globulin Ratio 0.9 % - Radiology Data Radiology results: report reviewed CHEST 2 VIEWS INDICATION: COUGH, FEVER. COMPARISON: AP chest 04/19/2020. CTA chest 04/22/2020 FINDINGS: Support devices: None. Heart: Within normal limits. Lungs/pleura: Subtle patchy bilateral hilar airspace disease is again suggested on chest x-ray. No overwhelming change is appreciated since the CTA chest dated 04/22/2020. No consolidation, pleural effusion or pneumothorax has developed. Additional findings: None. IMPRESSION: Subtle bilateral lung opacities persist concerning for atypical pneumonia or viral infection. - Medical Decision Making 50-year-old -Luxembourger male patient presents with complaints of right chest pain with deep inhalation only x 2 days. Patient was admitted here on for overdosing and pneumonia with hypoxia in 04/20/2024 worsening pneumonia. During his last admission, patient was evaluated by infectious disease and discharged home on Ceftin and doxy for 3 days. Patient reports he did not fill his antibiotic prescriptions until 5 to 6 days ago when he began having pain in his chest with inhalation. He reports that the pain resolved while taking the antibiotics and then returned once the antibiotics were completed. He denies any shortness of breath, fever/chills/sweats, history of RI/CVA/DVT, leg pain/swelling, hemoptysis, or other symptoms. Patient is a chronic smoker Lungs are clear to auscultation bilaterally on exam. Chest x-ray shows persi stent bilateral lung opacities concerning for atypical pneumonia. Patient given dose of azithromycin IV. CBC is normal. Patient is afebrile non-tachycardic. His pulse ox is 97% on room air. Discussed patient in detail with Dr. Leslie, infectious disease-recommends extension of Ceftin and doxycycline for 5 more days and follow-up with PCP. Patient is well-appearing and stable for discharge home. Strict return precautions were discussed in great detail with patient who voices understanding. Critical care attestation.: If time is entered above; I have spent that time in minutes in the direct care of this critically ill patient, excluding procedure time. ED Disposition Clinical Impression: Bilateral pneumonia Qualifiers: Pneumonia type: due to unspecified organism Lung location: lower lobe of lung Qualified Code(s): J18.9 - Pneumonia, unspecified organism Disposition: - TO HOME OR SELFCARE Is pt being admited?: No Condition: Stable Instructions: Bacterial Pneumonia (ED) Prescriptions: cefUROXime [Ceftin] 500 mg PO Q12HR 5 Days #10 tablet DOXYCYCLINE Hyclate [Vibramycin CAP] 100 mg PO BID 5 Days #10 tab Referrals: [facility] [Provider Group] - 2-3 Days
[2020-05-01 13:14] VITALS: BP 110/72
[2020-05-01 14:12] LABS: Basophils # (Auto) 0.1 K/mm3 (0.0-0.1); Basophils % (Auto) 1.7 % (0.0-1.8); Eosinophils # (Auto) 0.1 K/mm3 (0.0-0.4); Eosinophils % (Auto) 0.6 % (0.0-4.3); Hematocrit 38.2 % (35.5-45.6); Hemoglobin 11.8 gm/dl (11.8-15.2); Lymphocytes # (Auto) 1.3 K/mm3 (1.2-5.4); Lymphocytes % (Auto) 15.4 % (13.4-35.0); Mean Corpuscular HGB Conc 31 % (32-34); Mean Corpuscular Volume 77 fl (84-94); Monocytes % (Auto) 11.7 % (0.0-7.3); Platelet Count 413 K/mm3 (140-440); Red Blood Count 4.94 M/mm3 (3.65-5.03); Red Cell Distribution Width 13.9 % (13.2-15.2)
[2020-05-01 14:48] LABS: Alanine Aminotransferase 9 units/L (7-56); BUN/Creatinine Ratio 11; Blood Urea Nitrogen 9 mg/dL (9-20); Calcium 8.7 mg/dL (8.4-10.2); Hemolysis Index 3
[2020-05-01] MEDS ORDERED: AZITHROMYCIN 500 MG in SODIUM CHLORIDE 0.9% 250ML 250 ML IV ONE (15:30)
[2020-05-01] MEDS ORDERED: KETOROLAC 30 MG/1 ML INJ IV ONE (15:55)
== END 2020-05-01 17:11 | disposition home or self-care (01) ==
LOC: ED 09:31
DX: J18.9 Pneumonia, unspecified organism (principal); F17.200 Nicotine dependence, unspecified, uncomplicated
CPT/HCPCS: 36415; 71046; 80053; 85025; 96365; 96375; 99284; J0456; J1885; J7050